=== PATIENT | female | born 1960 | race Caucasian/White ===

== ENCOUNTER → 2020-10-30 | Outpatient (CLI) | payer BC ==
[~2020-10-30] MED LIST: NORCO 5-325 TA1 EACH PO; VENTOLIN HFA INH8 GM IH
== END ==
LOC: M.LAB 14:50
PROVIDERS: ATTEND Orthopaedic Surgery
DX: Z01.812 Encounter for preprocedural laboratory examination (principal); Z20.822 Contact with and (suspected) exposure to COVID-19